=== PATIENT | female | born 1945 | race Caucasian/White ===

== ENCOUNTER 2021-09-22 09:27 | Emergency (ER) | payer MEDICARE, BC | END 2021-09-22 10:36 | disposition home or self-care (01) | LOC: MW.ED 09:27 | DX: J01.00 Acute maxillary sinusitis, unspecified (principal); R42 Dizziness and giddiness; I10 Essential (primary) hypertension; Z79.899 Other long term (current) drug therapy | CPT/HCPCS: 99283 ==